=== PATIENT | female | born 1975 | race Caucasian/White ===

== ENCOUNTER 2017-02-15 01:31 | Emergency (ER) | payer OTHER ==
[2017-02-15] MEDS ORDERED: HALOPERIDOL LACTATE 5 MG/ML SOL IM ONE (01:36)
[2017-02-15] MEDS ORDERED: HALOPERIDOL LACTATE 5 MG/ML SOL ONE (01:37)
[2017-02-15] MEDS ORDERED: LORAZEPAM 2 MG/ML SOL IV ONE ×2 (01:47→02:38)
[2017-02-15] MEDS ORDERED: LORAZEPAM 2 MG/ML SOL ONE ×2 (01:50→02:43)
[2017-02-15 02:44] LABS: BASOPHILS % (AUTO) 1 % (0-3); EOSINOPHILS % (AUTO) 2 % (0-9); HEMATOCRIT 34 % (35-47); MEAN CORPUSCULAR HGB CONC 37.4 gm/dl (32.0-36.0); MEAN CORPUSCULAR VOLUME 85 fL (81-99); MONOCYTES % (AUTO) 7.6 % (0-12); NEUTROPHILS % (AUTO) 66.1 % (37-80)
[2017-02-15 02:55] LABS: ALBUMIN 3.6 gm/dl (3.4-5.0); ALT 18 IU/L (14-63); GLOM FILT RATE 62 mL/min (>60); POTASSIUM 3.4 mMol/L (3.5-5.1); SALICYLATE 5.2 mg/dl (2.8-30.0)
[2017-02-15 03:05] LABS: SODIUM 127 mMol/L (136-145)
[2017-02-15 03:13] LABS: APPEARANCE,URINE Slightly Cloudy; BILIRUBIN,URINE NEGATIVE (NEGATIVE); COLOR,URINE Yellow; GLUCOSE, URINE (UA) NEGATIVE (NEGATIVE); KETONES,URINE NEGATIVE (NEGATIVE); LEUKOCYTE ESTERASE ,URINE NEGATIVE (NEGATIVE); NITRATE,URINE NEGATIVE (NEGATIVE); OCCULT BLOOD,URINE NEGATIVE (NEG-TRACE); PH,URINE 5.5; UROBILINOGEN,URINE 0.2 (0.2-1.0 EU)
[2017-02-15 03:15] LABS: ANISOCYTOSIS SLIGHT
[2017-02-15 03:27] LABS: AMPHETAMINES NEGATIVE (NEGATIVE); METHADONE NEGATIVE (NEGATIVE); OPIATES(OP13) NEGATIVE (NEGATIVE); OXYCODONE(OXY) NEGATIVE (NEGATIVE); PROPOXYPHENE(PPX) NEGATIVE (NEGATIVE); RBC,URINE 0-1 (0-3AV/HPF); TRICYCLIC ANTIDEPRESSANTS NEGATIVE (NEGATIVE); WBC,URINE 0-1 (0-5AV/HPF)
[2017-02-15 03:35] VITALS: RESP 20
[2017-02-15] MEDS ORDERED: SODIUM CHLORIDE 0.9% 1000ML 1,000 ML IV NR (04:15)
[2017-02-15] MEDS ORDERED: POTASSIUM CHLORIDE 10 MEQ TER PO ONE (04:16)
[2017-02-15] MEDS ORDERED: POTASSIUM CHLORIDE 10 MEQ TER ONE (04:18)
[2017-02-15] MEDS ORDERED: SODIUM CHLORIDE 0.9% 1000ML 1,000 ML IV ONE (04:21)
[2017-02-15 07:05] VITALS: BP 146/91; PULSE 68; TEMP 97.4; O2SAT 99
== END 2017-02-15 07:19 | disposition short-term general hospital (02) ==
LOC: ED 01:31
DX: F23 Brief psychotic disorder (principal); E87.1 Hypo-osmolality and hyponatremia; R63.1 Polydipsia; F10.21 Alcohol dependence, in remission
CPT/HCPCS: 99285 ×3; 80053; 80305; 80307 ×3; 81003; 84443; 84484; 84703; 85025; 86140; 93005; J1630; J2060 ×2; 36415; 70450

== ENCOUNTER 2017-02-26 00:23 | Emergency (ER) | payer OTHER ==
[2017-02-26 01:30] VITALS: BP 130/83; PULSE 86; RESP 18; TEMP 96.8; O2SAT 100
[2017-02-26 01:34] LABS: POTASSIUM 3.9 mMol/L (3.5-5.1)
[2017-02-26] MEDS ORDERED: LORAZEPAM 0.5 MG TAB PO ONE (01:57)
[2017-02-26] MEDS ORDERED: LORAZEPAM 0.5 MG TAB ONE (02:03)
== END 2017-02-26 02:18 | disposition home or self-care (01) ==
LOC: ED 00:23
DX: F41.9 Anxiety disorder, unspecified (principal)
CPT/HCPCS: 36415; 80048; 99282; 99283

== ENCOUNTER 2017-08-05 20:40 | Emergency (ER) | payer OTHER ==
[2017-08-05 20:40] VITALS: O2SAT 100
[2017-08-05] MEDS ORDERED: LORAZEPAM 0.5 MG TAB PO ONE (21:02)
[2017-08-05 21:07] VITALS: TEMP 97
[2017-08-05] MEDS ORDERED: LORAZEPAM 0.5 MG TAB ONE (21:09)
[2017-08-05 21:22] LABS: BASOPHILS % (AUTO) 1 % (0-3); EOSINOPHILS % (AUTO) 2 % (0-9); HEMATOCRIT 33 % (35-47); MEAN CORPUSCULAR VOLUME 87 fL (81-99); NEUTROPHILS % (AUTO) 51.2 % (37-80)
[2017-08-05 21:31] LABS: CALCIUM 7.7 mg/dl (8.5-10.1); POTASSIUM 4.7 mMol/L (3.5-5.1)
[2017-08-05 21:49] VITALS: BP 115/86; PULSE 65; RESP 19
== END 2017-08-05 21:48 | disposition home or self-care (01) ==
LOC: ED 20:40
DX: F41.9 Anxiety disorder, unspecified (principal)
CPT/HCPCS: 36415; 80048; 85025; 99282; 99283; A9270-GY

== ENCOUNTER 2018-02-16 22:02 | Emergency (ER) | payer OTHER ==
[2018-02-16] MEDS ORDERED: LORAZEPAM 0.5 MG TAB PO ONE ×2 (22:25→23:13)
[2018-02-16] MEDS ORDERED: LORAZEPAM 0.5 MG TAB ONE ×2 (22:29→23:11)
[2018-02-16 22:31] VITALS: RESP 18; TEMP 98.3
[2018-02-16] MEDS ORDERED: DIPHENHYDRAMINE 25 MG CAP PO ONE (23:16)
[2018-02-16] MEDS ORDERED: DIPHENHYDRAMINE 25 MG CAP ONE (23:17)
[2018-02-16 23:53] VITALS: BP 128/74; PULSE 72; O2SAT 97
== END 2018-02-16 23:47 | disposition home or self-care (01) ==
LOC: ED 22:02
DX: F41.0 Panic disorder [episodic paroxysmal anxiety] (principal)
CPT/HCPCS: 99283; A9270-GY

== ENCOUNTER 2018-10-27 19:00 | Emergency (ER) | payer OTHER ==
[2018-10-27 19:22] VITALS: BP 127/73; PULSE 62; RESP 16; TEMP 96.7; O2SAT 98
[2018-10-27] MEDS ORDERED: NAPROXEN 500 MG TAB PO ONE (19:52)
[2018-10-27] MEDS ORDERED: NAPROXEN 500 MG TAB ONE (20:01)
== END 2018-10-27 20:05 | disposition home or self-care (01) | DRG 159 ==
LOC: ED 19:00
DX: K08.89 Other specified disorders of teeth and supporting structures (principal)
CPT/HCPCS: 99282; A9270-GY

== ENCOUNTER 2018-12-08 20:20 | Emergency (ER) | payer OTHER ==
[2018-12-08] MEDS ORDERED: PREDNISONE 20 MG TAB PO ONE (21:35)
[2018-12-08 21:38] VITALS: RESP 18; O2SAT 96
[2018-12-08] MEDS ORDERED: PREDNISONE 20 MG TAB ONE (21:47)
[2018-12-08 22:24] VITALS: BP 110/70; PULSE 62
[2018-12-08 22:29] VITALS: TEMP 98.2
== END 2018-12-08 22:20 | disposition home or self-care (01) | DRG 74 ==
LOC: ED 20:20
DX: G51.0 Bell's palsy (principal)
CPT/HCPCS: 70450; 99283; 99284; A9270-GY